=== PATIENT | male | born 1965 | race Caucasian/White ===

== ENCOUNTER 2022-07-18 08:19 | Emergency (ER) | payer OTHER, SELFPAY ==
--- NOTE | ~2022-07-18 | CT_ITS ---
EXAMINATION: CT CHEST WITH IV CONTRAST CT ABDOMEN AND PELVIS WITH IV CONTRAST CLINICAL INFORMATION: 56-year-old male with history of difficulty swallowing, upper abdominal pain. COMPARISON: Report from CT abdomen/pelvis from 11/29/2015 (images not available for review in our [employer] electronic archive). TECHNIQUE: Multidetector CT imaging examination of the chest, abdomen and pelvis was performed with intravenous administration of 100 mL Omnipaque 350. Axial images are displayed at 0.6 mm and 5 mm slice thickness. Coronal and sagittal reformatted images were generated at the technologist's workstation and submitted for review. This CT examination was performed using dose optimization techniques as appropriate, variously including the following: *Automated exposure control *Adjustment of mA and/or kV according to patient size (this includes techniques or standardized protocols for targeted exams where dose is matched to indication/reason for exam; i.e. extremities or head) *Use of iterative reconstruction technique DLP: 1712 mGy-cm (total, for CT exams of the chest, abdomen/pelvis and neck) FINDINGS: CHEST - LUNGS AND PLEURA: Moderate centrilobular emphysema. Also, paraseptal emphysema of upper lobes. Bronchial calderón are diffusely thickened and secretions are present within some of the right lower lobe bronchi. Correlate for history of chronic obstructive pulmonary disease. Minimal atelectasis of dependent aspect of each upper lobe. No focal consolidation, pleural effusion or pneumothorax. A stable solid nodule of 0.5 cm average diameter is present in the right middle lobe. Also, there is a solid right middle lobe nodule of nearly 0.5 cm average diameter and a small noncalcified nodule that measures up to 0.3 cm maximum dimension the lateral right lower lobe. A 0.4 cm solid noncalcified nodule is present in the lateral left lower lobe. MEDIASTINUM/LOWER NECK: The heart size is normal. Mild atherosclerotic calcification of coronary arteries. No pericardial effusion. Pulmonary arteries and thoracic aorta are normal in size. No aortic aneurysm or dissection. The esophagus has normal wall thickness. No mediastinal mass. Thyroid gland is unremarkable. LYMPHATICS: No pathologic sized axillary, hilar or mediastinal lymph nodes. CHEST WALL/BONES: No chest wall mass. Mild multilevel discovertebral degenerative change. Chronic mild height loss of T7 vertebral body. ABDOMEN AND PELVIS - HEPATOBILIARY: Liver has normal size, contour and attenuation. Gallbladder is unremarkable. No intrahepatic or extrahepatic bile duct dilatation. PANCREAS: No acute findings within the atrophied pancreas. No edema, mass or pancreatic ductal dilatation. SPLEEN: Normal. ADRENAL GLANDS: Normal. KIDNEYS AND URETERS: Kidneys are normal in size and enhance symmetrically. 0.5 cm calyceal stone of the left kidney. No hydronephrosis. The ureters are unremarkable. BOWEL AND PERITONEUM: No dilated loops of bowel. The appendix is normal. No overt bowel wall thickening. No mesenteric fat stranding, ascites or pneumoperitoneum. ABDOMINAL WALL: Minimal protrusion of fat into the umbilicus. VESSELS: Atherosclerosis of the abdominal aorta without aneurysm. Inferior vena cava is normal. LYMPH NODES: No pathologic sized lymph nodes in the abdomen or pelvis. No inguinal lymphadenopathy. BLADDER AND PELVIC VISCERA: Urinary bladder has normal wall thickness. No evidence of bladder mass or stone. Prostate gland is unremarkable. Posterior to the bladder, there is a 2.4 x 4 cm structure that appears to represent focal fusiform enlargement of the vas deferens which is peripherally calcified and has density of approximately 40 Hounsfield units. Therefore, this is not a simple cyst of the vas deferens. There is no inflammation of the surrounding tissues. MUSCULOSKELETAL: No acute findings within the lumbar spine. Chronic degenerative disc disease and 0.2 cm of L5 retrolisthesis at L5-S1. Osteoarthritis of the hips is moderate on the left and mild on the right. Prominent well-corticated ossicle at the lateral aspect of the left acetabulum. CT/CT abdomen pelvis w IV con IMPRESSION: * Moderate pulmonary emphysema. * A few solid pulmonary nodules are detected, largest with average diameter of 0.5 cm as observed on 11/29/2015. Based on Fleischner Society guidelines, chest CT follow-up is not required in a low-risk patient and may be considered optional at 12 months in a high risk patient. * The esophagus is normal. No evidence of esophageal mass or hiatal hernia. * 0.5 cm stone of the left kidney. No hydronephrosis. * Incidentally noted is focal fusiform enlargement of the right vas deferens. Currently, comparison CT images from 11/29/2015 are not available for review. The chronicity of the vasa deferens enlargement is uncertain. The calcification of the vas deferens is a finding that can be observed in patients with diabetes.
--- NOTE | ~2022-07-18 | CT_ITS ---
EXAMINATION: CT SOFT TISSUE NECK WITH CONTRAST CLINICAL INFORMATION: Difficulty swallowing/upper abdominal pain. Positive smoker. COMPARISON: None TECHNIQUE: Following the administration of 100 mL of Omnipaque 300 intravenous contrast, helical imaging was performed in the axial plane with generation of coronal and sagittal reformatted images. This CT examination was performed using dose optimization techniques as appropriate, variously including the following: *Automated exposure control *Adjustment of mA and/or kV according to patient size (this includes techniques or standardized protocols for targeted exams where dose is matched to indication/reason for exam; i.e. extremities or head) *Use of iterative reconstruction technique DLP: 1712 mGy-cm FINDINGS: The nasopharynx appears normal. There is no retropharyngeal adenopathy or collection. The tonsils and base of tongue appear normal and symmetric. No oral cavity lesion is seen. The maxilla and mandible are edentulous with alveolar bone loss noted. There is no laryngeal lesion. The vocal folds appear symmetric. The airway appears patent. The bilateral parotid and submandibular glands appear normal. The thyroid gland appears normal. There is emphysema within the visualized upper lungs. The major neck vessels are normally opacified. Atheromatous changes are seen along the proximal right internal carotid artery without significant stenosis. The imaged intracranial contents appear normal. There is moderate mucosal thickening and opacification of the left maxillary sinus. Multilevel degenerative changes are noted in the spine. CT/CT soft tissue neck w IV con IMPRESSION: No neck mass or suspicious lymphadenopathy identified. Moderate mucosal thickening and opacification of the left maxillary sinus.
[2022-07-18 08:27] VITALS: BP 147/86; PULSE 79; RESP 16; TEMP 36.2; O2SAT 97; BMI 22.7
[2022-07-18 09:03] LABS: MANUAL DIFF FLAG NO
[2022-07-18 09:17] LABS: Basophils Percent Auto 0.4 % (0-2); Eosinophils Absolute Auto 0.2 X10*3/uL (0.0-0.4); Eosinophils Percent Auto 1.8 % (0-4); Hemoglobin 16.4 g/dl (14.0-18.0); Imm Gran Abs Auto 0.04 X10*3/uL (0.00-0.03); Imm Gran Pct Auto 0.4 % (0.0-0.4); Lymphocytes Absolute Auto 2.4 X10*3/uL (1.2-4.9); Lymphocytes Percent Auto 23.6 % (20-40); Mean Corpuscular HGB Conc 36.4 g/dl (31.0-36.0); Mean Corpuscular Hemoglobin 31.2 pg (27.0-33.0); Mean Corpuscular Volume 85.7 fL (80.0-98.0); Mean Platelet Volume 8.8 fL (9.4-12.4); Monocytes Absolute Auto 0.5 X10*3/uL (0.1-1.2); Monocytes Percent Auto 5.3 % (2-11); Neutrophils Percent Auto 68.5 % (45-73); Platelet Count 260 X10*3/uL (160-400); Red Blood Count 5.25 X10*6/uL (4.60-5.80); Red Cell Distribution Width 12.9 % (11.0-16.0); White Blood Count 10.2 X10*3/uL (4.8-10.8)
[2022-07-18 09:19] LABS: Alanine Aminotransferase 13 U/L (0-40); Albumin Level 4.2 g/dL (3.5-5.0); Alkaline Phosphatase 67 U/L (39-117); Anion Gap 15 (12-20); Aspartate Amino Transferase 15 U/L (5-37); Bilirubin Direct 0.2 mg/dL (0.0-0.5); Bilirubin Total 0.7 mg/dL (0.0-1.0); Blood Urea Nitrogen 11 mg/dL (9-16); Calcium 8.8 mg/dL (8.4-10.2); Carbon Dioxide 27 mmol/L (22-29); Chloride 100 mmol/L (96-108); Creatinine Clr Calc Pharmacy 92.4; Estimated Glomerular Filt Rate > 60; Glucose Random 129 mg/dL (60-115); Lipase 31 U/L (8-78); Sodium 139 mmol/L (135-145); Total Protein 6.1 g/dL (6.5-8.0)
[2022-07-18 10:51] VITALS: BP 114/87; PULSE 70; RESP 16; TEMP 36.4; O2SAT 97
--- NOTE | 2022-07-18 10:59 | PC.NURSE ---
pt AOx3, vss. Reports something stuck in throat for several months. They describe it as a phlegm the he is sometimes able to cough up but then it returns. Awaiting provider.
--- NOTE | 2022-07-18 11:08 | ED.GENADULT ---
HPI - General Adult General Chief complaint: General Medical Stated complaint: feels like something is stuck in throat Time Seen by Provider: 07/18/22 10:45 Source: patient Mode of arrival: ambulatory Limitations: no limitations History of Present Illness HPI narrative: 56-year-old male with a history of COPD, hypertension, GERD who presents with complaints of 2 months of difficulty swallowing and feeling like food is getting stuck. Patient denies any change of voice, sore throat. He reports some intermittent upper abdominal pain. No nausea, vomiting, difficulty breathing. Patient has a history of COPD and is a long-time smoker. Patient reports unintentional 10 lb weight loss has never had an endoscopy or seen GI Related Data Allergies Allergy/AdvReac Type Severity Reaction Status Date / Time No Known Allergies Allergy Verified 07/18/22 08:29 Review of Systems Review of Systems: Yes all other systems are reviewed and are negative Constitutional: Constitutional: Reports no additional constitutional complaints, Denies body ache(s), Denies chills, Denies fever(s), Denies headache(s), Denies weakness and Reports weight loss Eyes: Eyes: Reports no additional eye complaints and Denies change in vision ENT: Reports system reviewed and no additional complaints, except as documented, Denies dizziness, Denies headache(s), Denies nasal congestion, Denies nasal discharge, Denies neck pain, Reports odynophagia and Denies sore throat Cardiovascular: Cardiovascular: Reports no additional cardiovascular complaints, Denies chest pain, Denies leg edema and Denies dyspnea Respiratory: Respiratory: Reports no additional respiratory complaints, Denies cough and Denies dyspnea Gastrointestinal: Gastrointestinal: Reports no additional gastrointestinal complaints, Denies abdominal pain, Denies diarrhea, Denies nausea, Reports odynophagia and Denies vomiting Genitourinary: Genitourinary: Denies urinary incontinence Musculoskeletal: Musculoskeletal: Reports no additional musculoskeletal complaints, Denies back pain, Denies arthralgias, Denies joint swelling, Denies neck pain, Denies numbness and Denies tingling Integumentary/Breasts: Skin/Breast: Reports system reviewed and no additional complaints, except as docu and Denies rash Neurologic: Reports system reviewed and no additional complaints, except as documented, Denies dizziness, Denies headache(s), Denies numbness, Denies tingling and Denies weakness PMFSH Past Medical History Attestation statement: The following information was validated with the patient. Source: old records reviewed and nursing notes reviewed Medical History Acid reflux Asthma COPD (chronic obstructive pulmonary disease) Social History Social History Alcohol intake: current Alcohol intake frequency: 0-2 drinks per day Smoked in Last 30 Days: Yes Use of substances other than those prescribed or required for medical reasons: No Advance Directives: No Advance Directives Information Provided: Yes Physical Exam ED Vital Signs: Vital Signs - 24 hr 07/18/22 08:27 07/18/22 10:51 07/18/22 12:00 Temperature 97.2 F 97.6 F 97.8 F Pulse Rate 79 70 65 Respiratory Rate 16 16 16 Blood Pressure 147/86 H 114/87 121/81 Pulse Oximetry 97 97 97 Oxygen Delivery Method Room Air Room Air Room Air BMI result Body Mass Index 22.7 Const General: cooperative, healthy appearing, comfortable and no acute distress Orientation/consciousness: patient oriented x3 Limitations: no limitations HENMT Head: Yes normal to inspection Ears: hearing grossly normal bilaterally and TM's normal bilaterally Face and sinus: Yes normal facial exam Mouth: Normal oral and palatal mucosa present Throat: Yes posterior oropharynx normal, Yes tonsils normal and Yes uvula midline Eyes General: appearance normal, both eyes and all related structures Pupils: Equal, round and reactive pupils present Neck Neck: Yes normal visual inspection, Yes full ROM, Yes no lymphadenopathy and Yes no meningeal signs Chest Chest palpation & inspection: normal inspection of the chest Resp Effort & Inspection: normal respiratory effort Auscultation: clear to auscultation bilaterally Cardio Rate: regular rate Rhythm: regular rhythm Peripheral pulses: Peripheral pulses 2+ throughout GI Inspection: Yes normal to inspection Palpation (GI): Soft to palpation and nontender Skin General skin exam: no rashes or lesions noted Neuro General: patient oriented x3, moves all extremities and no meningeal signs Cranial nerves: Yes Equal, round and reactive pupils present Cognition (Neuro): normal cognition Gait exam (Neuro): Normal gait present Extrem General: Yes normal to inspection Course Course Course Narrative: CT shows no explanation for difficulty swallowing. There are incidental finding seen and these were discussed with the patient. Patient is tolerating p.o. with no difficulty. Likely has esophageal stricture. Recommend patient follow-up with GI outpatient for endoscopy. recommended soft fooods. Reviewed worrisome signs and symptoms when to return to the emergency room. Comfortable plan for discharge home. Medications Administered Discontinued Medications Generic Name Dose Route Start Last Admin Trade Name Freq PRN Reason Stop Dose Admin Iohexol 100 ml 07/18/22 12:21 07/18/22 12:21 Iohexol 350 Mg/Ml 100 Ml Infus..Btl IV 07/18/22 12:22 100 ml ONCE ONE Administration Medical Decision Making Medical Decision Making [facility] Narrative: 56-year-old male here with 2 months of difficulty swallowing, feeling like food is getting stuck with unintentional weight loss with a history of tobacco smoking for more than 30 years. Vitals stable. Lungs clear. Abdomen soft nontender. Will obtain CT chest/abdomen pelvis/neck, labs, UA Differential Diagnosis Differential Diagnoses: The differential diagnosis associated with the presentation includes malignancy, esophageal stricture Lab Data [facility] Lab Attestation statement: I reviewed the patient's lab results. 07/18/22 08:59 07/18/22 08:59 Labs: Lab Results 07/18/22 07/18/22 Range/Units 08:59 08:59 WBC 10.2 (4.8-10.8) X10*3/uL RBC 5.25 (4.60-5.80) X10*6/uL Hgb 16.4 (14.0-18.0) g/dl Hct 45.0 (42.0-52.0) % MCV 85.7 (80.0-98.0) fL MCH 31.2 (27.0-33.0) pg MCHC 36.4 H (31.0-36.0) g/dl RDW 12.9 (11.0-16.0) % Plt Count 260 (160-400) X10*3/uL MPV 8.8 L (9.4-12.4) fL Immature Gran % (Auto) 0.4 (0.0-0.4) % Neut % (Auto) 68.5 (45-73) % Lymph % (Auto) 23.6 (20-40) % [place] % (Auto) 5.3 (2-11) % Eos % (Auto) 1.8 (0-4) % Baso % (Auto) 0.4 (0-2) % Lymph # (Auto) 2.4 (1.2-4.9) X10*3/uL [place] # (Auto) 0.5 (0.1-1.2) X10*3/uL Eos # (Auto) 0.2 (0.0-0.4) X10*3/uL Baso # (Auto) 0.0 (0.0-0.2) X10*3/uL Abs Immat Gran (auto) 0.04 H (0.00-0.03) X10*3/uL Absolute Neuts (auto) 7.0 (2.0-8.3) x10*3/uL Absolute Nucleated RBC 0.000 (0.0-0.012) X10*3/uL Nucleated RBC % (auto) 0.0 (0.0-0.2) /100WBC Sodium 139 (135-145) mmol/L Potassium 3.0 L (3.3-5.1) mmol/L Chloride 100 (96-108) mmol/L Carbon Dioxide 27 (22-29) mmol/L Anion Gap 15 (12-20) BUN 11 (9-16) mg/dL Creatinine 0.82 (0.5-1.4) mg/dL Estim Creat Clear Calc 92.4 Estimated GFR > 60 Random Glucose 129 H (60-115) mg/dL Calcium 8.8 (8.4-10.2) mg/dL Total Bilirubin 0.7 (0.0-1.0) mg/dL Direct Bilirubin 0.2 (0.0-0.5) mg/dL AST 15 (5-37) U/L ALT 13 (0-40) U/L Alkaline Phosphatase 67 (39-117) U/L Total Protein 6.1 L (6.5-8.0) g/dL Albumin 4.2 (3.5-5.0) g/dL Lipase 31 (8-78) U/L Independent Interpretation I performed an independent interpretation of an: CT Scan Interpretation: I independently reviewed the CT scan and agree with radiologist report Radiology Impression Discussion of test interpretation with radiology: I have reviewed the radiologist's reading. Radiologist Impression: FINDINGS: CHEST - LUNGS AND PLEURA:? Moderate centrilobular emphysema. Also, paraseptal emphysema of upper lobes. Bronchial calderón are diffusely thickened and secretions are present within some of the right lower lobe bronchi. Correlate for history of chronic obstructive pulmonary disease. Minimal atelectasis of dependent aspect of each upper lobe. No focal consolidation, pleural effusion or pneumothorax. A stable solid nodule of 0.5 cm average diameter is present in the right middle lobe. Also, there is a solid right middle lobe nodule of nearly 0.5 cm average diameter and a small noncalcified nodule that measures up to 0.3 cm maximum dimension the lateral right lower lobe. A 0.4 cm solid noncalcified nodule is present in the lateral left lower lobe. MEDIASTINUM/LOWER NECK: The heart size is normal. Mild atherosclerotic calcification of coronary arteries. No pericardial effusion. Pulmonary arteries and thoracic aorta are normal in size. No aortic aneurysm or dissection. The esophagus has normal wall thickness. No mediastinal mass. Thyroid gland is unremarkable. LYMPHATICS: No pathologic sized axillary, hilar or mediastinal lymph nodes. CHEST WALL/BONES: No chest wall mass. Mild multilevel discovertebral degenerative change. Chronic mild height loss of T7 vertebral body. ABDOMEN AND PELVIS - HEPATOBILIARY: Liver has normal size, contour and attenuation. Gallbladder is unremarkable. No intrahepatic or extrahepatic bile duct dilatation. PANCREAS: No acute findings within the atrophied pancreas. No edema, mass or pancreatic ductal dilatation. SPLEEN: Normal. ADRENAL GLANDS: Normal. KIDNEYS AND URETERS: Kidneys are normal in size and enhance symmetrically. 0.5 cm calyceal stone of the left kidney. No hydronephrosis. The ureters are unremarkable. BOWEL AND PERITONEUM: No dilated loops of bowel. The appendix is normal. No overt bowel wall thickening. No mesenteric fat stranding, ascites or pneumoperitoneum. ABDOMINAL WALL: Minimal protrusion of fat into the umbilicus. VESSELS: Atherosclerosis of the abdominal aorta without aneurysm. Inferior vena cava is normal. LYMPH NODES: No pathologic sized lymph nodes in the abdomen or pelvis. No inguinal lymphadenopathy. BLADDER AND PELVIC VISCERA: Urinary bladder has normal wall thickness. No evidence of bladder mass or stone. Prostate gland is unremarkable. Posterior to the bladder, there is a 2.4 x 4 cm structure that appears to represent focal fusiform enlargement of the vas deferens which is peripherally calcified and has density of approximately 40 Hounsfield units. Therefore, this is not a simple cyst of the vas deferens. There is no inflammation of the surrounding tissues. MUSCULOSKELETAL: No acute findings within the lumbar spine. Chronic degenerative disc disease and 0.2 cm of L5 retrolisthesis at L5-S1. Osteoarthritis of the hips is moderate on the left and mild on the right. Prominent well-corticated ossicle at the lateral aspect of the left acetabulum. CT/CT abdomen pelvis w IV con IMPRESSION: *? Moderate pulmonary emphysema. *? A few solid pulmonary nodules are detected, largest with average diameter of 0.5 cm as observed on 11/29/2015. Based on Fleischner Society guidelines, chest CT follow-up is not required in a low-risk patient and may be considered optional at 12 months in a high risk patient. *? The esophagus is normal. No evidence of esophageal mass or hiatal hernia. *? 0.5 cm stone of the left kidney. No hydronephrosis. *? Incidentally noted is focal fusiform enlargement of the right vas deferens. Currently, comparison CT images from 11/29/2015 are not available for review. The chronicity of the vasa deferens enlargement is uncertain. The calcification of the vas deferens is a finding that can be observed in patients with diabetes. ? Discharge Plan Discharge Clinical Impression: Difficulty in swallowing Patient Disposition: Home, Self-Care Instructions: Dysphagia (ED) Additional Instructions: you likely have a narrowing of your esophagus called esophageal stricture. This is best seen on endoscopy. Please follow-up with Gastroenterology. You may need a referral from her primary care's you can call your insurance and check before calling Gastroenterology. Soft foods. Return for any worsening symptoms. Referrals: Saul Gutierrez [Physician] - 1 week Interventions: ED Discharge Assessment Last Done: 07/18/22 14:03 Discharge Date/Time: 07/18/22 14:03
[2022-07-18 12:00] VITALS: BP 121/81; PULSE 65; RESP 16; TEMP 36.6; O2SAT 97
[2022-07-18] MEDS: iohexoL 350 MG/ML 100 ML INFUS..BTL IV (12:21)
== END 2022-07-18 14:03 | disposition home or self-care (01) ==
PROVIDERS: Emergency Provider Student in an Organized Health Care Education/Training Program; PCP Nurse Practitioner Primary Care
DX: R13.10 Dysphagia, unspecified (principal); R91.8 Other nonspecific abnormal finding of lung field; I10 Essential (primary) hypertension; Z87.891 Personal history of nicotine dependence
CPT/HCPCS: 36415; 70491; 71260; 74177; 80053; 82248; 83690; 85025; 99284; Q9967

== ENCOUNTER 2022-12-23 15:20 | Outpatient (AMB) | payer OTHER, SELFPAY ==
--- NOTE | 2022-12-23 15:36 | A.OFFVIS_ITS ---
Intake Vital Signs 12/23/22 15:37 Height 5 ft 7 in Weight 137 lb 9.095 oz BMI 21.5 BP 129/69 Blood Pressure Location Lt brachial Position Sitting Pulse 59 Intake Visit Reasons: Gastroesophageal reflux disease (GERD) Intake Note: Rayo presents in office as a new.patient for GERD. PT CC:pt reports having no concerns pt denies any other GI Issues Health Claims Examiner Required: No Accompanied by: Self / Same As Patient Allergies No Known Allergies Allergy (Verified 12/23/22 15:36) HPI Gastroesophageal reflux disease (GERD) HPI Details 57-year-old male with past medical history COPD, hypertension, opiate dependence is here today for initial consultation. Patient was sent to us by his PCP for evaluation of dysphagia. Patient reports that he had 1 episode of food getting stuck in his throat and inability to swallow. Patient was seen in the ER in July of 2022, soft tissue and neck CT done without seeing any acute processes. Patient also had long and abdominal CT scan done at that time nodule seen in the right lobe. Patient reports that he has not had any more episodes. Taking omeprazole for acid reflux and has not had any issues. Patient denies any dyspepsia, dysphagia or odynophagia. Denies any melena, hematochezia, unintentional weight loss or ribbon like stools. [facility]LY [facility] Medical History Acid reflux Asthma COPD (chronic obstructive pulmonary disease) Family History (Updated 12/23/22 @ 15:43 by Chinmay Rogel) Mother HTN (hypertension) Diabetes Social History (Updated 12/23/22 @ 15:43 by Chinmay Rogel) Household Members: Other Alcohol intake: current Alcohol intake frequency: 0-2 drinks per day Patient Tobacco Use Status: Current everyday Tobacco user Tobacco use type: Cigarette Cigarette Packs Per Day: 1 Cigarettes Per Day: 20 Smoked in Last 30 Days: Yes Use of substances other than those prescribed or required for medical reasons: Yes Substance Use Type: Caffiene Review of Systems Const Denies weight gain and Denies weight loss ENT Reports no additional complaints, Denies dysphagia and Denies odynophagia Card Reports no additional complaints Resp Reports no additional complaints GI Denies abdominal pain, Denies belching, Denies melena, Denies bloating, Denies change in bowel habits, Denies dysphagia, Denies excessive flatus, Denies dyspepsia, Denies heartburn, Denies diarrhea, Denies loose stools, Denies nausea, Denies odynophagia and Denies vomiting Reports no additional complaints Musc Reports no additional complaints Neuro Reports no additional complaints Psych Reports no additional complaints Endo Reports no additional complaints Physical Exam Vital Signs: Last Vital Signs Pulse 59 12/23/22 15:37 BP 129/69 12/23/22 15:37 BMI result Body Mass Index 21.5 Const General: healthy appearing, no acute distress and well developed Nutritional Appearance: well nourished Orientation/consciousness: patient oriented x3 HEENT Head: Yes normal to inspection, Yes normocephalic and Yes atraumatic Face and sinus: Yes normal facial exam Mouth: Normal oral and palatal mucosa present Throat: Yes posterior oropharynx normal, Yes tonsils normal and Yes uvula midline Eyes General: appearance normal, both eyes and all related structures Neck Neck: Yes normal visual inspection, Yes full ROM and Yes trachea midline Thyroid: Thyroid normal Resp Effort & Inspection: normal respiratory effort, able to speak in complete sentences, no tracheal deviation and symmetric chest movement Auscultation: clear to auscultation bilaterally Cardio Rate: regular rate Heart sounds: S1 normal heart sound present and S2 normal heart sound present GI Inspection: Yes normal to inspection and No distended Palpation (GI): Soft to palpation, not firm, nontender and No hepatosplenomegaly present Auscultation: normal bowel sounds General: Yes no CVA tenderness Back/Spine/Pelvis Back: no CVA tenderness Skin General skin exam: elasticity normal, turgor normal and dry skin Neuro General: patient oriented x3 Psych Appearance: grossly normal Mental Status: mental status grossly normal Speech and movement: Normal speech and movement present Affect: normal affect Assessment & Plan Assessment & Plan (1) GERD (gastroesophageal reflux disease): Code(s): K21.9 - Gastro-esophageal reflux disease without esophagitis Qualifiers: Esophagitis presence: esophagitis presence not specified Qualified Code(s): K21.9 - Gastro-esophageal reflux disease without esophagitis Plan: Continue omeprazole daily. Patient is encouraged to avoid dietary triggers in late night snacking. Patient denies dyspepsia, dysphagia or odynophagia. Patient was encouraged to call our office if he will have any symptoms of dysphagia or any other GI concerning symptoms. Patient is agreeable to this plan and verbalizes understanding of instructions. He was given the opportunity to ask questions and all questions answered. Thank you for allowing me to participate in his care Coding Level of Care Code New Pt Level 3 (82064) Diagnoses GERD (gastroesophageal reflux disease) K21.9 Esophagitis presence: esophagitis presence not specified Time Spent (min) 40 Comment 30 minutes spent with patient and additional 10 minutes spent reviewing his records
[2022-12-23 15:37] VITALS: BP 129/69; PULSE 59; BMI 21.5
== END 2022-12-23 16:01 | disposition home or self-care (01) ==
PROVIDERS: PCP Nurse Practitioner Primary Care; Visit Provider Nurse Practitioner Family
DX: K21.9 Gastro-esophageal reflux disease without esophagitis (principal)
CPT/HCPCS: 99203

== ENCOUNTER → 2022-12-23 15:20 | Outpatient (BNVA) | payer OTHER, SELFPAY | PROVIDERS: PCP Nurse Practitioner Primary Care; Visit Provider Nurse Practitioner Family | DX: K21.9 Gastro-esophageal reflux disease without esophagitis (principal) | CPT/HCPCS: 99202 ==

== ENCOUNTER 2023-07-13 09:43 | Outpatient (REF) | payer OTHER, SELFPAY ==
[2023-07-13 12:01] LABS: Alanine Aminotransferase 15 U/L (0-40); Albumin Level 4.3 g/dL (3.5-5.0); Alkaline Phosphatase 82 U/L (39-117); Aspartate Amino Transferase 19 U/L (5-37); Bilirubin Direct 0.2 mg/dL (0.0-0.5); Bilirubin Total 0.5 mg/dL (0.0-1.0); Total Protein 7.2 g/dL (6.5-8.0)
[2023-07-13 12:03] LABS: HIV AB/AG Nonreactive (Nonreactive); HIV Num 1 0.04 S/CO (0.00-0.99); ~HepC Num1 0.05 S/CO (0.00-0.79); ~Hepatitis C Antibody Nonreactive (Nonreactive)
== END 2023-07-13 09:44 | disposition home or self-care (01) ==
LOC: HO.HHCL 09:43
PROVIDERS: Visit Provider Emergency Medicine
DX: Z11.4 Encounter for screening for human immunodeficiency virus [HIV] (principal); F11.20 Opioid dependence, uncomplicated
CPT/HCPCS: 36415; 80076; 86803; 87389

== ENCOUNTER 2025-02-20 09:04 | Outpatient (REF) | payer OTHER, SELFPAY ==
--- OUTSIDE RECORDS SUMMARY | 2025-02-20 09:30 | XMS_ITS | Encounter Summary ---
Author Organization [employer] Address [address] [facility] [address]t [place] [address] Care Team Providers Care Glass Rolling Machine Operator Name Role Phone Pratima De La Paz SANIYA Primary Care Provider [phone] Reason for Visit * Reason Comments obat f/u Encounter Details Date Type Department Care Team (Latest Contact Info) Description 02/20/2025 9:30 AM EDT Office Visit [facility] MEDICINE [address] [place], [place] [phone] Olu Cook MD [address] [place] [address] Uncomplicated opioid dependence (CMS/HCC) (Primary Dx); Tobacco use disorder Social History Tobacco Use Types Packs/Day Years Used Date Smoking Tobacco: Every Day Cigarettes Smokeless Tobacco: Never Alcohol Use Standard Drinks/Week Comments Yes 0 (1 standard drink = 0.6 oz pur e alcohol) Alcohol Answer Date Recorded How often do you have a drink containing alcohol ? 3 11/04/2022 How many drinks containing a lcohol do you have on a typical day when you are drinking? 1 11/04/2022 How often do you have six or more drinks on one occasion? 3 11/04/2022 Depression Answer Date Recorded Patient Health Questionnaire-9 Score 5 02/25/2024 Patient Health Questionnaire-9 Score 5 02/25/2024 Last PHQ-9: Questionnaire Data Not on file 0 02/25/2024 Housing Stability Answer Date Recorded What is your housing situation today? I have kianna yu 08/28/[address] you li ve. Do you have problems with any of the following? None of the above 08/28/2024 Food Insecurity Answer Date Recorded Within the past 12 months, y ou worried that your food would run out before you got money to buy more: Never True 02/25/2024 Within the past 12 months,th e food you bought just didn't last and you didn't have enough money to get more: Never True Transportation Answer Date Recorded In the past 12 months, has l ack of transportation kept you from medical appts, meetings, work or from getting things needed for daily living? No 02/25/2024 Utilities Answer Date Recorded In the past 12 months, has t he electric, gas, oil or water company threatened to shut off services in your home? No 08/28/2024 Depression Answer Date Recorded Patient Health Questionnaire-2 Score 3 02/25/2024 Internet Access Answer Date Recorded Internet Access Q1 No 08/28/2024 Internet Access Q2 I do not want or need it 08/06 Sex and Gender Information Value Date Recorded Sex Assigned at Male 04/06/2022 10:27 AM EDT Legal Sex Male 10:27 AM EDT Gender Identity Male 04/06/2022 10:27 AM EDT Sexual Orientation Straight 04/06/2022 10 :27 AM EDT documented as of this encounter Plan of Treatment Upcoming Encounters Date Type Department Care Team (Late st Contact Info) Description 04/17/2025 9:30 AM EST Clinical Support [address] [address] Marium Dick RN documented as of this encounter Procedures Procedure Name Priority Date/Time Associated Diagnosis Comments POCT MARY-14 URINE DRUG SCREEN Routine 02/20/2025 9:25 AM EDT Uncomplicated opioid dependence ([facility]) documented in this encounter Results * (ABNORMAL) POCT MARY-14 Urine Drug Screen (02/20/2025 9:25 AM EDT) THC Negative Negative Cocaine Screen, Urine Negative Negative Opiate Screen, Urine Negative Negative Methamphetamine Screen Urine Negative Negative Amphetamine Screen, Urine Negative Negative Benzodiazepines Screen, Urine Negative Negative Barbiturate Screen, Urine Negative Negative Methadone Screen, Urine Negative Negative Buprenophine Screen, Urine Positive(A) Negative TCA, Urine Negative Negative MDMA Urine Negative Negative ng/mL Oxycodone Screen, Urine Negative Negative Phencyclidine (PCP), Urine Negative Negative Fentanyl, Urine Negative Negative Urine Urine specimen obtained by clean catch procedure / Unknown 02/20/2025 9:25 AM EDT us Olu Cook MD POINT OF CARE TEST ENTER/EDIT ORDERABLES Final Result documented in this encounter Visit Diagnoses Diagnosis Uncomplicated opioid dependence (CMS/HCC)- Primary Tobacco use disorder documented in this encounter Additional Health Concerns Assessment Noted Time PHQ-9 Depression Total Score: 5 02/25/20 24 11:19 AM EDT documented as of this encounter Care Teams Glass Rolling Machine Operator Relationship Specialty Start Date End Date Pratima De La Paz ANP [address] [place] [address] PCP - General Family Medicine 10/24/19 documented as of this encounter
--- OUTSIDE RECORDS SUMMARY | 2025-02-20 11:17 | XMS_ITS | Encounter Summary ---
Author Organization [employer] Address [address] [facility] 7t [place] [address] Care Team Providers Care Electrical Contractor Name Role Phone Pratima De La Paz SANIYA Primary Care Provider [phone] Reason for Visit * Reason Comments Med Refill Encounter Details Date Type Department Care Team ([facility] st Contact Info) Description 05/25/2023 Refill [facility] MEDICINE [address] [place], [place] [phone] Olu Cook MD [address] [place], [place] [phone] Uncomplicated opioid dependence (CMS/HCC) Social History Tobacco Use Types Packs/Day Years [...] Answer Date Recorded Patient Health Questionnaire-9 Score 0 11/17/2022 Housing Stability Answer Date Recorded What is your housing situation today? I have kianna yu 03/31/[address] you li ve. Do you have problems with any of the following? None of the above 03/31/2023 Food Insecurity Answer Date Recorded Within the past 12 months, y ou worried that your food would run out before you got money to buy more: Never True 03/31/2023 Within the past 12 months,th e food you bought just didn't last and you didn't have enough money to get more: Never True Transportation Answer Date Recorded In the past 12 months, has l ack of transportation kept you from medical appts, meetings, work or from getting things needed for daily living? No 03/31/2023 Utilities Answer Date Recorded In the past 12 months, has t he electric, gas, oil or water company threatened to shut off services in your home? No 03/31/2023 Depression Answer Date Recorded Patient Health Questionnaire-2 Score 0 11/17/2022 Sex and Gender Information Value Date Recorded Sex Assigned at Male 04/06/2022 10:27 AM EDT Legal Sex Male 10:27 AM EDT Gender Identity Male 04/06/2022 10:27 AM EDT Sexual Orientation Straight 04/06/2022 10 :27 AM EDT documented as of this encounter Plan of Treatment Upcoming Encounters Date Type Department Care Team (Late st Contact Info) Description 04/17/2025 9:30 AM EST Clinical Support [facility] MEDICINE [address] [place] [id number] Marium Dick RN documented as of this encounter Visit Diagnoses Diagnosis Uncomplicated opioid dependence (CMS/HCC) documented in this encounter Additional Health Concerns Assessment Noted Time PHQ-9 Depression Total Score: 0 11/18/19 23 3:23 PM EDT documented as of this encounter Care Teams Electrical Contractor Relationship Specialty Start Date End Date Pratima De La Paz ANP [address] [place] [id number] PCP - General Family Medicine 10/24/19 documented as of this encounter
--- OUTSIDE RECORDS SUMMARY | 2025-02-20 11:17 | XMS_ITS | Encounter Summary ---
Author Organization [employer] Address [address] [facility] 7t [place] [address] Care Team Providers Care Label Machine Operator Name Role Phone Pratima De La Paz Primary Care Provider [phone] Reason for Visit * Reason Comments Med Refill Encounter Details Date Type Department Care Team (Late st Contact Info) Description 12/10/2022 Refill [facility] MEDICINE [address] [place], [place] [phone] Pratima De La Paz ANP [address] [place] [address] Chronic bilateral low back pain without sciatica Social History Tobacco Use Types Packs/Day Years [...] Recorded Patient Health Questionnaire-9 Score 0 11/17/2022 Depression Answer Date Recorded Patient Health Questionnaire-2 Score 0 11/17/2022 Sex and Gender Information Value Date Recorded Sex Assigned at Male 04/06/2022 10:27 AM EDT Legal Sex Male 10:27 AM EDT Gender Identity Male 04/06/2022 10:27 AM EDT Sexual Orientation Straight 04/06/2022 10 :27 AM EDT COVID-19 Exposure Response Date Recorded In the last 10 days, have yo u been in contact with someone who was confirmed or suspected to have Coronavirus/COVID-19? No / Unsure 12/10/2022 8:34 AM EDT documented as of this encounter Plan of Treatment Upcoming Encounters Date Type Department Care Team (Late st Contact Info) Description 04/17/2025 9:30 AM EST Clinical Support [facility] MEDICINE [address] [place] [address] Marium Dick RN documented as of this encounter Visit Diagnoses Diagnosis Chronic bilateral low back pain without sciatica documented in this encounter Additional Health Concerns Assessment Noted Time PHQ-9 Depression Total Score: 0 11/18/19 23 3:23 PM EDT documented as of this encounter Care Teams Label Machine Operator Relationship Specialty Start Date End Date Pratima De La Paz ANP [address] [place] [address] PCP - General Family Medicine 10/24/19 documented as of this encounter
--- OUTSIDE RECORDS SUMMARY | 2025-02-20 11:17 | XMS_ITS | Encounter Summary ---
Author Organization [employer] Address [address] [facility] 7t [place] [address] Care Team Providers Care Bullet Slug Casting Machine Operator Name Role Phone Pratima De La Paz SANIYA Primary Care Provider [phone] Reason for Visit * Reason Comments Med Refill Encounter Details Date Type Department Care Team (Late st Contact Info) Description 02/13/2025 Refill [facility] MEDICINE [address] [place], [place] [phone] Olu Cook MD [address] [place], [place] [phone] Uncomplicated opioid dependence (CMS/HCC) Social History Tobacco [...] Description 04/17/2025 9:30 AM EST Clinical Support [facility] MEDICINE [address] [place] [address] Marium Dick RN documented as of this encounter Visit Diagnoses Diagnosis Uncomplicated opioid dependence (CMS/HCC) documented in this encounter Additional Health Concerns Assessment Noted Time PHQ-9 Depression Total Score: 5 02/25/20 24 11:19 AM EDT documented as of this encounter Care Teams Bullet Slug Casting Machine Operator Relationship Specialty Start Date End Date Pratima De La Paz ANP [address] [place] [address] PCP - General Family Medicine 10/24/19 documented as of this encounter
--- OUTSIDE RECORDS SUMMARY | 2025-02-20 11:17 | XMS_ITS | Encounter Summary ---
Author Organization [employer] Address [address] [facility] 7t [place] [address] Care Team Providers Care Software Sales Name Role Phone Pratima De La Paz Primary Care Provider [phone] Encounter Details Date Type Department Care Team (Late st Contact Info) Description 06/25/2022 Orders Only [facility] MED & PEDS [address] [place] [address] Melonie Real LPN Social History Tobacco Use Types Packs/Day Years Used Date Smoking Tobacco: Never Assessed Sex and Gender Information Value Date Recorded Sex Assigned at Male 04/06/2022 10:27 AM EDT Legal Sex Male 10:27 AM EDT Gender Identity Male 04/06/2022 10:27 AM EDT Sexual Orientation Straight 04/06/2022 10 :27 AM EDT documented as of this encounter Plan of Treatment Upcoming Encounters Date Type Department Care Team (Late st Contact Info) Description 04/17/2025 9:30 AM EST Clinical Support [facility] MEDICINE [address] [place] [address] Marium Dick RN documented as of this encounter Visit Diagnoses Not on filedocumented in this encounter Care Teams Software Sales Relationship Specialty Start Date End Date Pratima De La Paz ANP [address] [place] [address] PCP - General Family Medicine 10/24/19 documented as of this encounter
--- OUTSIDE RECORDS SUMMARY | 2025-02-20 11:17 | XMS_ITS | Encounter Summary ---
Author Organization [employer] Address [address] [facility] [address] [place] [address] Care Team Providers Care Assistant Golf Coach Name Role Phone Pratima De La Paz Primary Care Provider [phone] Encounter Details Date Type Department Care Team (Late Contact Info) Description 07/13/2022 Orders Only [facility] CHC MED & PEDS [address] [place] [address] Melonie Real LPN Social History Tobacco Use [...] suspected to have Coronavirus/COVID-19? No / Unsure 07/14/2022 9:02 AM EST documented as of this encounter Plan of Treatment Upcoming Encounters Date Type Department Care Team (Late st Contact Info) Description 04/17/2025 9:30 AM EST Clinical Support [facility] MEDICINE [address] [place] [address] Marium Dick, RN documented as of this encounter Visit Diagnoses Not on filedocumented in this encounter Care Teams Assistant Golf Coach Relationship Specialty Start Date End Date Pratima De La Paz ANP [address] [place] [address] PCP - General Family Medicine 10/24/19 documented as of this encounter
--- OUTSIDE RECORDS SUMMARY | 2025-02-20 11:17 | XMS_ITS | Encounter Summary ---
Author Organization [employer] Address [address] [facility] 7t [place] [address] Care Team Providers Care Wafer Fab Operator Name Role Phone Pratima De La Paz Primary Care Provider [phone] Reason for Visit * Reason Comments Med Refill Encounter Details Date Type Department Care Team (Late st Contact Info) Description 05/20/2023 Refill [facility] MED & PEDS [address] [place] [address] Pratima De La Paz ANP [address] [place] [address] Chronic bilateral low back pain without sciatica; Tobacco use disorder Social History Tobacco Use [...] Description 04/17/2025 9:30 AM EST Clinical Support [facility] MEDICINE [address] [place] [address] Marium Dick RN documented as of this encounter Visit Diagnoses Diagnosis Chronic bilateral low back pain without sciatica Tobacco use disorder documented in this encounter Additional Health Concerns Assessment Noted Time PHQ-9 Depression Total Score: 0 11/18/19 23 3:23 PM EDT documented as of this encounter Care Teams Wafer Fab Operator Relationship Specialty Start Date End Date Pratima De La Paz ANP [address] [place] [address] PCP - General Family Medicine 10/24/19 documented as of this encounter
--- OUTSIDE RECORDS SUMMARY | 2025-02-20 11:17 | XMS_ITS | Encounter Summary ---
Author Organization [email or web address] Address [address] [facility] 7t [place] [address] Care Team Providers Care Shrinking Machine Operator Name Role Phone Pratima De La Paz Primary Care Provider [phone] Reason for Visit * Reason Comments Med Refill Encounter Details Date Type Department Care Team ([facility] st Contact Info) Description 06/05/2024 Refill [facility] MED & PEDS [address] [place] [address] Pratima De La Paz ANP [address] [place] [address] Chronic obstructive pulmonary disease, unspecified COPD type (CMS/HCC) Social History Tobacco Use Types Packs/Day [...] What is your housing situation today? I do not have housing (Staying with others, in a hotel, in a correction, living outside on the street, on a beach, in a car, or in a park 02/25/[address] you li ve. Do you have problems with any of the following? None of the above 02/25/2024 Food Insecurity Answer Date Recorded Within the [...] Answer Date Recorded Internet Access Q1 No 02/25/2024 Internet Access Q2 Not on file 02/25/2024 Sex and Gender Information Value Date Recorded Sex Assigned at Male 04/06/2022 10:27 AM EDT Legal Sex Male 10:27 AM EDT Gender Identity Male 04/06/2022 10:27 AM EDT Sexual Orientation Straight 04/06/2022 10 :27 AM EDT documented as of this encounter Plan of Treatment Upcoming Encounters Date Type Department Care Team (Late st Contact Info) Description 04/17/2025 9:30 AM EST Clinical Support [facility] MEDICINE [address] [place] [address] Marium Dick, RN documented as of this encounter Visit Diagnoses Diagnosis Chronic obstructive pulmonary disease, unspecified COPD type (CMS/HCC) documented in this encounter Additional Health Concerns Assessment Noted Time PHQ-9 Depression Total Score: 5 02/25/20 24 11:19 AM EDT documented as of this encounter Care Teams Shrinking Machine Operator Relationship Specialty Start Date End Date Pratima De La Paz ANP [address] [place] [address] PCP - General Family Medicine 10/24/19 documented as of this encounter
--- OUTSIDE RECORDS SUMMARY | 2025-02-20 11:17 | XMS_ITS | Encounter Summary ---
Author Organization [employer] Address [address] [facility] 7t [place] [address] Care Team Providers Care Machine Package Sealer Name Role Phone Pratima De La Paz SANIYA Primary Care Provider [phone] Reason for Visit * Reason Comments Med Refill Encounter Details Date Type Department Care Team ([facility] st Contact Info) Description 12/21/2022 Refill [facility] CH[facility] MED & PEDS [address] [place] [address] Gigi Li MD [address] [place] [address] Essential hypertension Social History Tobacco Use Types Packs/Day Years [...] suspected to have Coronavirus/COVID-19? No / Unsure 12/15/2022 8:37 AM EDT documented as of this encounter Plan of Treatment Upcoming Encounters Date Type Department Care Team (Late st Contact Info) Description 04/17/2025 9:30 AM EST Clinical Support [facility] MEDICINE [address] [place] [address] Marium Dick RN documented as of this encounter Visit Diagnoses Diagnosis Essential hypertension Unspecified essential hypertension documented in this encounter Additional Health Concerns Assessment Noted Time PHQ-9 Depression Total Score: 0 11/18/19 23 3:23 PM EDT documented as of this encounter Care Teams Machine Package Sealer Relationship Specialty Start Date End Date Pratima De La Paz ANP [address] [place] [address] PCP - General Family Medicine 10/24/19 documented as of this encounter
--- OUTSIDE RECORDS SUMMARY | 2025-02-20 11:17 | XMS_ITS | Encounter Summary ---
Author Organization [employer] Address [address] [facility] 7t [place] [address] Care Team Providers Care Wheat Washer Name Role Phone Pratima De La Paz Primary Care Provider [phone] Reason for Visit * Reason Comments Med Refill Encounter Details Date Type Department Care Team ([facility] st Contact Info) Description 07/04/2024 Refill [facility] MED & PEDS [address] [place] [address] Pratima De La Paz ANP [address] [place] [address] Chronic obstructive pulmonary disease, unspecified COPD type [...] with others, in a hotel, in a penitentiary, living outside on the street, on a [...] Clinical Support [facility] MED[facility] [address] [place] [address] Marium Dick, RN documented as of this encounter Visit Diagnoses Diagnosis Chronic obstructive pulmonary disease, unspecified COPD type (CMS/HCC) documented in this encounter Additional Health Concerns Assessment Noted Time PHQ-9 Depression Total Score: 5 02/25/20 24 11:19 AM EDT documented as of this encounter Care Teams Wheat Washer Relationship Specialty Start Date End Date Pratima De La Paz ANP [address] [place] [address] PCP - General Family Medicine 10/24/19 documented as of this encounter
--- OUTSIDE RECORDS SUMMARY | 2025-02-20 11:17 | XMS_ITS | Encounter Summary ---
Author Organization [employer] Address 75 [facility] 7t [place] [address] Care Team Providers Care Allergist Immunologist Name Role Phone Pratima De La Paz Primary Care Provider [phone] Reason for Visit * Reason Comments Med Refill Encounter Details Date Type Department Care Team (Late st Contact Info) Description 05/24/2023 Refill [facility] [address] [place], [place] [phone] Pratima De La Paz ANP [address] [place], [place] [phone] Chronic bilateral low back pain without sciatica [...] enough money to get more: Never True 10/ Transportation Answer Date Recorded In the past [...] Description 04/17/2025 9:30 AM EST Clinical Support [facility] [address] [place] [phone] Marium Dick RN documented as of this encounter Visit Diagnoses Diagnosis Chronic bilateral low back pain without sciatica documented in this encounter Additional Health Concerns Assessment Noted Time PHQ-9 Depression Total Score: 0 11/18/19 23 3:23 PM EDT documented as of this encounter Care Teams Allergist Immunologist Relationship Specialty Start Date End Date Pratima De La Paz ANP [address] [place] [address] PCP - General Family Medicine 10/24/19 documented as of this encounter
--- OUTSIDE RECORDS SUMMARY | 2025-02-20 11:17 | XMS_ITS | Encounter Summary ---
Author Organization [employer] Address [address] [facility] [address] [place] [address] Care Team Providers Care Sales Recruitment Specialist Name Role Phone Pratima De La Paz Primary Care Provider [phone] Encounter Details Date Type Department Care Team (Late st Contact Info) Description 08/17/2022 Orders Only [facility] CH[facility] MED & PEDS [address] [place] [address] Melonie Real LPN Social History Tobacco Use [...] suspected to have Coronavirus/COVID-19? No / Unsure 08/17/2022 12:57 PM EDT documented as of this encounter Plan of Treatment Upcoming Encounters Date Type Department Care Team (Late st Contact Info) Description 04/17/2025 9:30 AM EST Clinical Support [facility] MEDICINE [address] [place] [address] Marium Dick, RN documented as of this encounter Visit Diagnoses Not on filedocumented in this encounter Care Teams Sales Recruitment Specialist Relationship Specialty Start Date End Date Pratima De La Paz ANP [address] [place] [address] PCP - General Family Medicine 10/24/19 documented as of this encounter
--- OUTSIDE RECORDS SUMMARY | 2025-02-20 11:17 | XMS_ITS | Encounter Summary ---
Author Organization [employer] Address [address] [facility] [address] 7[address] [place] [address] Care Team Providers Care Medical Collections Name Role Phone Pratima De La Paz SANIYA Primary Care Provider [phone] Encounter Details Date Type Department Care Team (Latest Contact Info) Description 02/20/2025 Travel Social History Tobacco Use Types Packs/Day Years [...] Description 04/17/2025 9:30 AM EST Clinical Support [facility] [address] [place] [address] Marium Dick RN documented as of this encounter Visit Diagnoses Not on filedocumented in this encounter Additional Health Concerns Assessment Noted Time PHQ-9 Depression Total Score: 5 02/25/20 24 11:19 AM EDT documented as of this encounter Care Teams Medical Collections Relationship Specialty Start Date End Date Pratima De La Paz ANP [address] [place] [address] PCP - General Family Medicine 10/24/19 documented as of this encounter
--- OUTSIDE RECORDS SUMMARY | 2025-02-20 11:17 | XMS_ITS | Encounter Summary ---
Author Organization [employer] Address 75 [facility] 7 [place] [address] Care Team Providers Care Film Writer Name Role Phone Pratima De La Paz Primary Care Provider Reason for Visit * Reason Comments Med Refill Encounter Details Date Type Department Care Team ([facility] Contact Info) Description 10/18/2022 Refill [facility] [address] [place] [address] [phone] Pratima De La Paz ANP [address] [place], [place] [phone] Uncomplicated opioid dependence (CMS/HCC) Social History Tobacco Use Types Packs/Day Years Used Date Smoking Tobacco: Every Day Cigarettes Smokeless Tobacco: Never Alcohol Use Standard Drinks/Week Comments Yes 0 (1 standard drink = 0.6 oz pur e alcohol) PHQ-2 Answer Date Recorded Patient Health Questionnaire-2 Score 0 08/28/2022 Sex and Gender Information Value Date Recorded [...] suspected to have Coronavirus/COVID-19? No / Unsure 10/13/2022 9:35 AM EDT documented as of this encounter Plan of Treatment Upcoming Encounters Date Type Department Care Team (Late Contact Info) Description 04/17/2025 9:30 AM EST Clinical Support [facility] [address] [place] [phone] Marium Dick RN documented as of this encounter Visit Diagnoses Diagnosis Uncomplicated opioid dependence (CMS/HCC) documented in this encounter Additional Health Concerns Assessment Noted Time PHQ-9 Depression Total Score: 0 08/29/19 23 9:07 AM EDT documented as of this encounter Care Teams Film Writer Relationship Specialty Start Date End Date Pratima De La Paz ANP [address] [place] [address] PCP - General Family Medicine 10/24/19 documented as of this encounter
--- OUTSIDE RECORDS SUMMARY | 2025-02-20 11:17 | XMS_ITS | Encounter Summary ---
Author Organization [employer] Address 75 [facility] [address] [place] [address] Care Team Providers Care Gis Analyst Name Role Phone Pratima De La Paz SANIYA Primary Care Provider [phone] Encounter Details Date Type Department Care Team (Late Contact Info) Description 01/25/2023 Orders Only [facility] CHC MED & PEDS [address] [place] [address] Melonie Real LPN Social History Tobacco Use [...] 9:30 AM EST Clinical Support [facility] [address] [place] [address] Marium Dick RN documented as of this encounter Visit Diagnoses Not on filedocumented in this encounter Additional Health Concerns Assessment Noted Time PHQ-9 Depression Total Score: 0 11/18/19 23 3:23 PM EDT documented as of this encounter Care Teams Gis Analyst Relationship Specialty Start Date End Date Pratima De La Paz ANP [address] [place] [address] PCP - General Family Medicine 10/24/19 documented as of this encounter
--- OUTSIDE RECORDS SUMMARY | 2025-02-20 11:17 | XMS_ITS | Encounter Summary ---
Author Organization [employer] Address [address] [facility] 7t [place] [address] Care Team Providers Care Anesthesiologist Assistant Name Role Phone Pratima De La Paz Primary Care Provider [phone] Reason for Visit * Reason Comments Med Refill Encounter Details Date Type Department Care Team (Late st Contact Info) Description 09/07/2023 Refill [facility] CHC MED & PEDS [address] [place] [address] Pratima De La Paz ANP [address] [place] [address] Social History Tobacco Use Types Packs/Day Years [...] 04/17/2025 9:30 AM EST Clinical Support [facility] [address] [place] [address] Marium Dick RN documented as of this encounter Visit Diagnoses Not on filedocumented in this encounter Additional Health Concerns Assessment Noted Time PHQ-9 Depression Total Score: 0 11/18/19 23 3:23 PM EDT documented as of this encounter Care Teams Anesthesiologist Assistant Relationship Specialty Start Date End Date Pratima De La Paz ANP [address] [place] [address] PCP - General Family Medicine 10/24/19 documented as of this encounter
--- OUTSIDE RECORDS SUMMARY | 2025-02-20 11:17 | XMS_ITS | Encounter Summary ---
Author Organization [employer] Address [address] [place] [address] 7t [place] [address] Care Team Providers Care Billing Typist Name Role Phone Pratima De La Paz Primary Care Provider [phone] Encounter Details Date Type Department Care Team (Late st Contact Info) Description 05/19/2022 Abstract [facility] MEDICINE [address] [place] [phone] Provider, MD Grace Social History Tobacco Use Types Packs/Day Years [...] Description 04/17/2025 9:30 AM EST Clinical Support [address] [address] Marium Dick RN documented as of this encounter Visit Diagnoses Not on filedocumented in this encounter Care Teams Billing Typist Relationship Specialty Start Date End Date Pratima De La Paz ANP [address] [place] [address] PCP - General Family Medicine 10/24/19 documented as of this encounter
--- OUTSIDE RECORDS SUMMARY | 2025-02-20 11:17 | XMS_ITS | Clinical Summary ---
Author Organization [employer] Address [address] [facility] [address]t [place] [address] Care Team Providers Care Industrial Gas Service Helper Name Role Phone Pratima De La Paz SANIYA Primary Care Provider [phone] Allergies No known active allergies Medications * This document contains information received from the source organization and may not represent a complete record from that organization. Ventolin HFA 108 (90 Base) MCG/ACT inhalerIndicati ons:Chronic obstructive pulmonary disease, unspecified COPD type (CMS/HCC) INHALE 2 PUFFS BY MOUTH EVERY 4 TO 6 HOURS NEEDED 18 g 3 11/13/19 23 Active SUMAtriptan (Imitrex) 100 MG tabletIndicatio ns:Migraine without status migrainosus, not intractable, unspecified migraine type TAKE 1 TABLET BY MOUTH AT ONSET OF MIGRAINE. MAY REPEAT ONCE AFTER 2 HOURS IF NEEDED. NO MORE THAN 2 TABLETS DAILY. 18 tablet 5 09/30/19 24 Active b complex vitamins capsuleIndicati ons:Alcohol use disorder, mild, abuse Take 1 capsule by mouth Once per day. 90 capsule 3 02/25/20 24 025 Active nicotine polacrilex (Nicorette) 4 MG lozengeIndicati ons:Tobacco use disorder Dissolve 1 lozenge (4 mg) in the mouth every 2 (two) hours if needed for smoking cessation. May use 1 lozenge every 1-2 hours instead of a cigarette x 6 weeks-will try to decrease frequency at that time. 100 lozenge 1 04/18/20 24 Active Incruse Ellipta 62.5 MCG/ACT aerosol powderIndicatio ns:Chronic obstructive pulmonary disease with (acute) exacerbation (CMS/HCC) INHALE 1 PUFF BY MOUTH EVERY DAY AT THE SAME TIME 30 each 05/24/20 24 Active omeprazole (PriLOSEC) [address] capsule TAKE 1 CAPSULE BY MOUTH EVERY DAY BEFORE BREAKFAST 90 capsule 3 08/29/19 25 Active losartan (Cozaar) 50 MG tabletIndicatio ns:Essential hypertension TAKE 1 TABLET BY MOUTH EVERY DAY 90 tablet 3 08/29/19 25 Active cholecalciferol (D3 Super Strength) 50 MCG (2000 UT) capsule TAKE 1 CAPSULE BY MOUTH EVERY DAY IN THE MORNING 90 capsule 1 09/01/19 25 Active budesonide-form oterol (Symbicort) 80-4.5 MCG/ACT inhalerIndicati ons:Chronic obstructive pulmonary disease, unspecified COPD type (CMS/HCC) Inhale 2 puffs in the morning and at bedtime. Rinse mouth with water after use to reduce aftertaste and incidence of candidiasis. Do not swallow. 1 each 11 09/05/19 25 026 Active hydroCHLOROthia zide 12.5 MG tabletIndicatio ns:Essential hypertension TAKE 2 TABLETS BY MOUTH EVERY DAY 180 tablet 1 10/25/19 25 Active atorvastatin (Lipitor) 40 MG tabletIndicatio ns:Atherosclero sis of abdominal aorta (CMS/HCC) TAKE 1 TABLET BY MOUTH EVERY DAY AT BEDTIME 90 tablet 3 01/06/20 25 Active tiZANidine (Zanaflex) 4 MG tabletIndicatio ns:Chronic bilateral low back pain without sciatica TAKE 1 TABLET BY MOUTH TWICE DAILY NEEDED 60 tablet 1 01/26/20 25 Active Buprenorphine HCl-Naloxone HCl (Suboxone) 8-2 MG SL filmIndications :Uncomplicated opioid dependence (CMS/HCC) Place 1 Film under the tongue 2 times daily. 56 Film 1 02/15/20 25 025 Active tiZANidine (Zanaflex) 4 MG tabletIndicatio ns:Chronic bilateral low back pain without sciatica TAKE 1 TABLET BY MOUTH TWICE DAILY NEEDED 60 tablet 1 10/28/19 25 025 Discontinued Buprenorphine HCl-Naloxone HCl (Suboxone) 8-2 MG SL filmIndications :Uncomplicated opioid dependence (CMS/HCC) Place 1 Film under the tongue 2 times daily. 56 Film 1 12/21/19 25 025 Discontinued(R eorder (will not trigger notification to Pharmacy)) Active Problems Problem Noted Date Diagnosed Date Screening for lung cancer 02/25/2024 Overview (02/25/2024): LDCT referral 02/25/24, 39 [facility] Chronic bilateral low back pain without sciatica 12/11/2022 Heartburn 12/11/2022 Atherosclerosis of abdominal aorta 12/11/2022 Alcohol use disorder, mild, abuse 11/04/2022 Essential hypertension 05/19/2022 Chronic obstructive lung disease 03/23/2017 Onychomycosis of toenail 08/02/2015 Opioid dependence on agonist therapy 08/02/2015 Encounters Date Type Department Care Team Description 02/20/2025 9:30 AM EDT Office Visit [facility] [address] [place] [phone] Olu Cook MD Uncomplicated opioid dependence (CMS/HCC) (Primary Dx); Tobacco use disorder 02/20/2025 Travel 02/13/2025 Refill [facility] [address] [place] [phone] Marium Dick RN Uncomplicated opioid dependence (CMS/HCC) 02/13/2025 Refill [facility] [address] [place] [phone] Olu Cook MD Uncomplicated opioid dependence (CMS/HCC) 02/09/2025 Orders Only [facility] [address] [place] [phone] Marium Dick RN Uncomplicated opioid dependence (CMS/HCC) 01/24/2025 Refill [facility] [address] [place] [address] Pratima De La Paz ANP Chronic bilateral low back pain without sciatica 01/05/2025 Refill [facility] [address] [place] [address] Chris Wiley MD Atherosclerosis of abdominal aorta (CMS/HCC) 01/04/2025 Patient Outreach [facility] [address] [place] [phone] Gavin Uribe Recovery Supports 12/26/2024 9:00 AM EDT Clinical Support [facility] [address] [place] [phone] Marium Dick RN Opioid type dependence, continuous (CMS/HCC) (Primary Dx) 12/26/2024 Patient Outreach [facility] [address] [place] [address] Gavin Uribe Recovery Supports 12/26/2024 Travel 12/20/2024 Refill [facility] [address] [place] [address] Marium Dick RN Uncomplicated opioid dependence ([facility]) 11/30/2024 Telephone [facility] [address] [place] [address] Pratima De La Paz ANP Med Refill 11/30/[address] [address] Pratima De La Paz ANP 11/29/2024 Telephone [facility] [address] [place] [address] Jose Morales [place] CHART PREP from Last 3 Months Immunizations Immunization Administration Dates Next Due Hep A, Adult 02/14/2019,12/22/2016 Hep B, adult 02/14/2019,01/26/2017,12/22/2016 Influenza Injectable Quadriv alant Preservative Free IIV4 MDCK 04/02/2020,05/01/2018 Influenza injectable quadriv alent IIV4 with preservative 05/18/2019,03/18/2016 Influenza injectable quadriv alent preservative free 02/28/2021,03/23/2017 Influenza, IIV3, injectable 03/16/2016, 4 Influenza, seasonal, injecta ble, preservative free 02/25/2024 Moderna Covid-19 Vaccine 12+ 09/16/2021,12/17/19 21,11/19/2020 Moderna Covid-19 Vaccine 6+ Bivalent 07/07/2022 Pneumococcal Conjugate PCV 20 08/28/2022 Td (adult), 5 Lf tetanus tox oid, preservative free, adsorbed 07/30/2016 Tdap 05/14/2016 Zoster, Recombinant 06/11/2020,04/02/2020 Social History Tobacco Use Types Packs/Day Years Used Date Smoking Tobacco: Every Day Cigarettes Smokeless Tobacco: Never Tobacco Cessation:Ready to Q uit: Not Asked; Counseling Given: Not Answered Alcohol Use Standard Drinks/Week Comments Yes 0 [...] Orientation Straight 04/06/2022 10 :27 AM EDT Last Filed Vital Signs Vital Sign Reading Time Taken Comments Blood Pressure 127/75 09/04/2024 11:14 AM EDT Pulse 64 09/04/2024 11:14 AM EDT Temperature 36.4 C (97.5 F) 09/04/2024 11:14 AM EDT Respiratory Rate 14 09/04/2024 11:14 AM EDT Oxygen Saturation 98% 09/04/2024 11:14 AM EDT Inhaled Oxygen Concentration - - Weight 65.5 kg (144 lb 6.4 oz) 09/04/2024 11:14 AM EDT Height 170.2 cm (5' 7 ) 02/25/2024 10:07 AM EDT Body Mass Index 22.62 02/25/2024 10:07 AM EDT Plan of Treatment Upcoming Encounters Date Type Department Care Team (Late st Contact Info) Description 04/17/2025 9:30 AM EST Clinical Support [facility] [address] [place] [phone] Marium Dick, DELORES Health Maintenance Due Date Last Done Comments CT Colonography 1964 Colonoscopy 1964 Colorectal Cancer Screening 1964 FIT DNA/Cologuard 1964 FIT 1964 FOBT 1964 Lipid Panel 1964 Sigmoidoscopy 1964 Disability Screening 1964 RSV Patients and Patients Aged 60 years or older (1 - Risk 60-74 years 1-dose series) 2024 COVID-19 Vaccine ( season) 2025 07/07/2022, 09/16/2021, 12/16/2020, Additional history exists Influenza Vaccine (#1) 2025 , 02/28/2021, 04/02/2020, Additional history exists Depression Screening 02/24/2025 02/25/2024, 02/25/20 24 SDOH Screening 08/28/2025 08/28/2024 Alcohol/Substance Use Screening 09/04/2025 09/04/2024 Tobacco Screening 09/04/2025 09/04/2024 DTaP/Tdap/Td Vaccines (3 - Td or Tdap) 07/30/2026 07/30/2016, 05/14/2016 Hepatitis A Vaccines Aged Out 02/14/2019, 12/23/19 17 No longer eligible based on patient's age to complete this topic Hepatitis B Vaccines Completed 02/14/2019, 01/26/2017, 12/22/2016 Zoster Vaccines Completed 06/11/2020, 04/02/2020 Pneumococcal Vaccine: 50+ Years Completed 08/28/2022 HIV Screening Completed 07/13/2023, 02/03/2022 Hepatitis C Screening Completed 07/13/2023, 022 HIB Vaccines Aged Out No longer eligi ble based on patient's age to complete this topic HPV Vaccines Aged Out No longer eligi ble based on patient's age to complete this topic IPV Vaccines Aged Out No longer eligi ble based on patient's age to complete this topic Meningococcal B Vaccine Aged Out No l onger eligible based on patient's age to complete this topic Meningococcal Vaccine Aged Out No rima re eligible based on patient's age to complete this topic RSV under 20 months Aged Out No longe r eligible based on patient's age to complete this topic Rotavirus Vaccines Aged Out No longer eligible based on patient's age to complete this topic Procedures Procedure Name Priority Date/Time Associated Diagnosis Comments POCT MARY-14 URINE DRUG SCREEN Routine 02/20/2025 9:25 AM EDT Uncomplicated opioid dependence (CMS/HCC) POCT MARY-14 URINE DRUG SCREEN Routine 12/26/2024 9:05 AM EDT Opioid type dependence, continuous (CMS/HCC) HEPATITIS C AB W/REFL TO HCV RNA, QN, PCR Routine 07/13/2023 9:46 AM EST Uncomplicated opioid dependence (CMS/HCC) HIV 1/2 ANTIGEN/ANTIBODY, FOURTH GENERATION W/RFL Routine 07/13/2023 9:46 AM EST Uncomplicated opioid dependence (CMS/HCC) from Last 3 Months or Most Recently Relevant to Health Maintenance Results * (ABNORMAL) POCT MARY-14 Urine Drug Screen (02/20/2025 9:25 AM EDT) Only the most recent of2 resultswithin the time period is included. THC Negative Negative Cocaine Screen, Urine Negative [...] OF CARE TEST ENTER/EDIT ORDERABLES Final Result * Hepatitis C Antibody with Reflex to HCV, RNA, Quantitative, Real-Time PCR (07/13/2023 9:46 AM EST) Hepatitis C Antibody Nonreactive Nonreactive [facility] Comment:Antibodies to HCV no t detected; does not exclude early acuteHCV infection. Blood Venous blood specimen / Unknown 07/13/2023 9:46 AM EST 07/13/2023 11:12 AM EST us Olu Cook MD LAB BLOOD ORDERABLES Final Res ult [facility] [address] [place] [phone] * HIV-1/2 Antigen and Antibodies, Fourth Generation, with Reflexes (07/13/2023 9:46 AM EST) HIV AB/AG Nonreactive Nonreactive [facility] Comment:HIV-1 p24 Ag and/or HIV-1/HIV-2 Ab not detected.A test result that is nonreactive does not exclude thepossibility of exposure to or infection with HIV-1 and/orHIV-2. Nonreactive results in this assay for individualswith prior exposure to HIV-1 and/or HIV-2 may be due toantigen and antibody levels that are below the limit ofdetection of this assay.The [employer] HIV Ag/Ab Combo assay result andsupplemental assay results should be interpreted inconjunction with the patient's clinical presentation,history and other laboratory results. If the results areinconsistent with clinical evidence, additional testing issuggested to confirm the result. Blood Venous blood specimen / Unknown 07/13/2023 9:46 AM EST 07/13/2023 11:12 AM EST us Olu Cook MD LAB BLOOD ORDERABLES Final Res ult [facility] [address] [place] [address] [phone] from Last 3 Months or Most Recently Relevant to Health Maintenance Insurance [facility] < 65 JOSEFINA TINAJERO [id number] Care Teams Industrial Gas Service Helper Relationship Specialty Start Date End Date Pratima De La Paz ANP [address] [place] [phone] PCP - General Family Medicine 10/24/19
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
[2025-02-20 11:21] LABS: MANUAL DIFF FLAG NO
[2025-02-20 11:38] LABS: Hematocrit 41.7 % (42.0-52.0); Hemoglobin 15.0 g/dl (14.0-18.0); Imm Gran Abs Auto 0.05 X10*3/uL (0.00-0.03); Imm Gran Pct Auto 0.6 % (0.0-0.4); Lymphocytes Absolute Auto 1.6 X10*3/uL (1.2-4.9); Mean Corpuscular HGB Conc 36.0 g/dl (31.0-36.0); Mean Corpuscular Hemoglobin 32.2 pg (27.0-33.0); Mean Corpuscular Volume 89.5 fL (80.0-98.0); NRBC Abs Auto 0.000 X10*3/uL (0.0-0.012); NRBC Pct Auto 0.0 /100WBC (0.0-0.2); Platelet Count 267 X10*3/uL (160-400); Red Blood Count 4.66 X10*6/uL (4.60-5.80); White Blood Count 8.2 X10*3/uL (4.8-10.8)
[2025-02-20 11:52] LABS: Hemoglobin A1C 150.8786 umol/L; Total Hemoglobin (HGBA1C) 3818.4680 umol/L
[2025-02-20 12:26] LABS: Alanine Aminotransferase 14 U/L (0-40); Albumin Level 4.6 g/dL (3.5-5.0); Alkaline Phosphatase 75 U/L (39-117); Anion Gap 11 (12-20); Aspartate Amino Transferase 24 U/L (5-37); Blood Urea Nitrogen 18 mg/dL (9-16); Calcium 9.2 mg/dL (8.4-10.2); Carbon Dioxide 32 mmol/L (22-29); Chloride 100 mmol/L (96-108); Cholesterol 165 mg/dL (<200); Estimated Glomerular Filt Rate > 60; HDL Cholesterol 51 mg/dL (>40); Magnesium 2.1 mg/dL (1.6-2.6); Potassium 3.1 mmol/L (3.3-5.1); Sodium 140 mmol/L (135-145); Total Protein 6.7 g/dL (6.5-8.0); Triglycerides 149 mg/dL (<150)
[2025-02-20 12:29] LABS: HIV Num 1 0.05 S/CO (0.00-0.99); ~HepC Num1 0.04 S/CO (0.00-0.79); ~Hepatitis C Antibody Nonreactive (Nonreactive)
[2025-02-20 12:30] LABS: Syphilis Screen Nonreactive (Nonreactive)
[2025-02-20 12:48] LABS: Vitamin B12 300 pg/mL (200-900)
== END 2025-02-20 09:05 | disposition home or self-care (01) ==
LOC: HO.HHCL 09:04
PROVIDERS: PCP Nurse Practitioner Primary Care; Referring Provider Emergency Medicine; Visit Provider Nurse Practitioner Primary Care
DX: Z11.1 Encounter for screening for respiratory tuberculosis (principal); R79.89 Other specified abnormal findings of blood chemistry; Z11.3 Encounter for screening for infections with a predominantly sexual mode of transmission; Z11.59 Encounter for screening for other viral diseases; F11.20 Opioid dependence, uncomplicated; I70.0 Atherosclerosis of aorta; R73.01 Impaired fasting glucose; R25.2 Cramp and spasm; I10 Essential (primary) hypertension; M79.605 Pain in left leg
CPT/HCPCS: 36415; 80053; 80061; 80076; 82248; 82306; 82607; 83036; 83735; 85025; 86481; 86780; 86803; 87389